=== PATIENT | female | born 1995 | race Caucasian/White ===

== ENCOUNTER 2018-12-17 13:15 | Observation (INO) | payer BC ==
--- NOTE | 2018-12-17 14:31 | ED ---
GI/ HPI - HPI Summary HPI Summary: This pt is a 23 y/o [facility]/o [facility] pain x7 days. Pt reports she went to [facility] yesterday and TOURIST INFORMATION ASSISTANT told her she might have a "strangled hemorrhoid" and she might be having pain from this. Pt was given creams for her hemorrhoid and notes it helps her pain but it wears off overnight and has extreme pain afterwards. Denies rectal bleeding. Today she called [facility] to get an appointment for tomorrow due to pain but the TOURIST INFORMATION ASSISTANT advised pt to get an appointment with [facility]. Pt was able to get an appointment with [facility] for tomorrow but due to pain she came to the ED. Pt reports she has not slept or eaten in 2 days secondary to her pain. She endorses nausea. Denies vomiting or fevers. - History of Current Complaint Chief Complaint: EDGeneral Time Seen by Provider: 12/17/18 14:24 Stated Complaint: Hemorrhoid pain Hx Obtained From: Patient Onset/Duration: Started Days Ago, Still Present Timing: Lasting Days Current Severity: Severe Pain Intensity: 7 Location of Pain: Rectal Associated Signs and Symptoms: Positive: Nausea, Rectal Pain. Negative: Vomiting, Fever Aggravating Factor(s): Nothing Alleviating Factor(s): Nothing - Allergy/Home Medications Allergies/Adverse Reactions: Allergies Allergy/AdvReac Type Severity Reaction Status Date / Time No Known Allergies Allergy Verified 12/17/18 18:17 Home Medications: Home Medications Hydrocortisone SUPP* [Anusol HC Supp*] 25 mg GA DAILY 12/17/18 [History Confirmed 12/17/18] Lidocaine 5% OINT* TUBE [Xylocaine 5% Oint*] 1 applic TOPICAL BID PRN 12/17/18 [ History Confirmed 12/17/18] Naproxen TAB* [Naprosyn 250 mg TAB*] 500 mg PO BID PRN 12/17/18 [History Confirmed 12/17/18] PMH/Surg Hx/FS Hx/Imm Hx Endocrine/Hematology History: Denies: Hx Diabetes Cardiovascular History: Denies: Hx Hypertension Infectious Disease History: No Infectious Disease History: Denies: Traveled Outside the [place] in Last 30 Days - Family History Known Family History: Positive: Non-Contributory - Social History Alcohol Use: Occasionally Substance Use Type: Reports: None Smoking Status (MU): Never Smoked Tobacco Review of Systems Constitutional: Other - POSITIVE: decreased appetite, sleep disturbance Negative: Fever Positive: Nausea. Negative: Vomiting Genitourinary: Other - POSITIVE: rectal pain Negative: other - NEGATIVE: rectal bleeding All Other Systems Reviewed And Are Negative: Yes Physical Exam - Summary Physical Exam Summary: Constitutional: Well-developed, Well-nourished, Alert. (-) Distressed Skin: Warm, Dry HENT: Normocephalic; Atraumatic Eyes: Conjunctiva normal Neck: Musculoskeletal ROM normal neck. (-) JVD, (-) Stridor, (-) Tracheal deviation Cardio: Rhythm regular, rate normal, Heart sounds normal; Intact distal pulses; The pedal pulses are 2+ and symmetric. Radial pulses are 2+ and symmetric. (-) Murmur Pulmonary/Chest wall: Effort normal. (-) Respiratory distress, (-) Wheezes, (-) Rales Abd: Soft, (-) tenderness, (-) Distension, (-) Guarding, (-) Rebound Rectal exam: She has perianal tenderness with mild swelling at 5 o'clock on the right side perianally where she has primarily tenderness. She has one small hemorrhoid that is not thrombosed and is soft and nontender. Musculoskeletal: (-) Edema Lymph: (-) Cervical adenopathy Neuro: Alert, Oriented x3 Psych: Mood and affect Normal Triage Information Reviewed: Yes Vital Signs On Initial Exam: Initial Vitals Temp Pulse Resp BP Pulse Ox 98.5 F 111 18 159/102 99 12/17/18 13:20 12/17/18 13:20 12/17/18 13:20 12/17/18 13:20 12/17/18 13:20 Vital Signs Reviewed: Yes Procedures - Sedation Patient Received Moderate/Deep Sedation with Procedure: No Diagnostics - Vital Signs Vital Signs Temp Pulse Resp BP Pulse Ox 12/17/18 13:20 98.5 F 111 18 159/102 99 - Laboratory Result Diagrams: 12/17/18 15:21 12/17/18 15:21 Lab Statement: Any lab studies that have been ordered have been reviewed, and results considered in the medical decision making process. - CT Pelvis CT CT Interpretation Completed By: Radiologist Summary of CT Findings: Per radiologist,. THERE IS A PERIRENAL FLUID COLLECTION EXTENDING INTO THE ISCHIOANAL FOSSAE BILATERALLY,. CONSISTENT WITH THE HISTORY OF PERIANAL ABSCESS. THIS MEASURES UP TO 5.7 CM. ED physician has reviewed this imaging report. GIGU Course/Dx - Course Assessment/Plan: Pt is a 23 y/o female [facility]/o rectal pain x7 days. Pt reports she has not slept or eaten in 2 days secondary to her pain. She endorses nausea. Denies vomiting or fevers. Pt [facility] with [facility] tomorrow. Exam reveals no abnormalities except for She has perianal tenderness with mild swelling at 5 o'clock on the right side perianally where she has primarily tenderness. She has one small hemorrhoid that is not thrombosed and is soft and nontender. Tests reveal no abnormalities except for WBC 11.8 H, Absolute Neuts 9.6 H, Absolute Monos 0.9 H , BUN/Creatinine Ratio 20.3 H, AsT 10 L, CRP 101.23 H, Lipase <10 L. Pt was given 145 ml Iohexol IV, 4 mg Morphine Sulfate IV, 4 mg Ondansetron Hcl IV, 200 mls.hr piperacillin Sod/Taxobactam Sod 3.375 gm in Sodium Chloride 1716in the ED. Pelvis CT reveals THERE IS A PERIRENAL FLUID COLLECTION EXTENDING INTO THE ISCHIOANAL FOSSAE BILATERALLY,. CONSISTENT WITH THE HISTORY OF PERIANAL ABSCESS. THIS MEASURES UP TO 5.7 CM. We discussed patient care with Dr. Perez, surgery, and he wishes to visit due to concern of perianal abscess. Patient will be admitted with diagnosis of perianal abscess. The patient is agreeable with this plan. - Diagnoses Provider Diagnoses: Perianal abscess - Physician Notifications Discussed Care Of Patient With: Kain Perez - surgeon Time Discussed With Above Provider: 17:16 Instructed by Provider To: Other - Pt might have perianal abscess, checked in on patient. Discharge ED - Sign-Out/Discharge Documenting (check all that apply): Patient Departure - admit - Discharge Plan Condition: Stable Disposition: ADMITTED TO [facility] - Billing Disposition and Condition Condition: STABLE Disposition: Admitted to [facility] - Attestation Statements Document Initiated by Scribe: Yes Documenting Scribe: Annemarie Morris Provider For Whom Scribe is Documenting (Include Credential): Molly Dominguez MD Scribe Attestation: IAnnemarie, scribed for Molly Vora MD on 12/17/18 at 5229. Scribe Documentation Reviewed: Yes Provider Attestation: The documentation as recorded by the scribe, Annemarie Morris accurately reflects the service I personally performed and the decisions made by me, Molly Vora MD Status of Scribe Document: Viewed
[2018-12-17] MEDS ORDERED: Iohexol 300* (CONTRAST) 10 ML SDV IV ONE (15:22)
[2018-12-17 15:38] LABS: ABS Eosinophils 0.1 10^3/ul (0-0.6); ABS Lymphocytes 1.2 10^3/ul (1.0-4.8); ABS Monocytes 0.9 10^3/ul (0-0.8); ABS Neutrophils 9.6 10^3/ul (1.5-7.7); Eosinophil % 0.5 %; Hematocrit 38 % (35-47); Hemoglobin 12.7 g/dL (12.0-16.0); Mean Corpuscular HGB Conc 34 g/dL (31-36); Mean Corpuscular Hemoglobin 30 pg (27-31); Mean Corpuscular Volume 90 fL (80-97); Mean Platelet Volume 7.8 fL (7.4-10.4); Nucleated Red Blood Cells % 0.1; Platelet Count 227 10^3/uL (150-450); Red Blood Count 4.19 10^6 /uL (3.70-4.87); Red Cell Distribution Width 12 % (10-15); White Blood Count 11.8 10^3/uL (3.5-10.8)
[2018-12-17 15:56] LABS: ALT 8 U/L (7-52); AST 10 U/L (13-39); Albumin 4.6 g/dL (3.2-5.2); Albumin/Globulin Ratio 1.4 (1-3); Alkaline Phosphatase 56 U/L (34-104); Anion Gap 7 mmol/L (2-11); BUN/Creatinine Ratio 20.3 (8-20); Blood Urea Nitrogen 15 mg/dL (6-24); C Reactive Protein 101.23 mg/L (<8.01); CO2 Carbon Dioxide 27 mmol/L (22-32); Calcium 10.1 mg/dL (8.6-10.3); Chloride 102 mmol/L (101-111); EGFR African American 119.9 (>60); EGFR Non-African American 99.1 (>60); Globulin 3.4 g/dL (2-4); Glucose 92 mg/dL (70-100); Potassium 3.8 mmol/L (3.5-5.0); Sodium 136 mmol/L (135-145)
[2018-12-17] MEDS ORDERED: Morphine 4 MG/ML VIAL (1 ml) 4 MG/ML VIAL IV ONE (17:01)
[2018-12-17] MEDS ORDERED: Ondansetron INJ* 2 MG/ML VIAL IV PRN ×2 (17:18→17:24)
[2018-12-17] MEDS ORDERED: Piperacillin/Tazobac ADVAN(*) 3.375 GM in NS 0.9% 100 ML* 100 ML IVPB ONE (17:18)
[2018-12-17] MEDS ORDERED: Lactated Ringers 1000 ML Bag* 1,000 ML IV SCH (17:22)
[2018-12-17] MEDS ORDERED: Morphine 4 MG/ML VIAL (1 ml) 4 MG/ML VIAL IV PRN (17:31)
--- NOTE | 2018-12-17 19:05 | HP ---
CC: [facility]; [facility] * ADMISSION HISTORY AND PHYSICAL: DATE OF ADMISSION: 12/17/18. CHIEF COMPLAINT: Severe perianal discomfort. HISTORY OF PRESENT ILLNESS: Ms. Gricel Peña is a pleasant 23-year-old [employer] senior, who last Sunday developed some perianal discomfort. This was somewhat mild for the first several days, but over the last 3 to 4 days had become increased in severity. She has not had any fever, shakes or chills. She has been having loose bowel movements. She has been urinating without difficulty. The pain was not improving with [id number]-cbi-[id number] nonsteroidals. She went to the [facility] yesterday. There was concern for possible internal hemorrhoid and she was given some ointments as well as recommended to take nonsteroidal pain medicine. When the pain persisted, she did make an appointment for this to be seen by [facility] in the office on Sunday, but the pain was worsening and she presented to the emergency room this evening. She has had no urinary complaints. There has been no blood per rectum. She has no history of perianal abscesses in the past. When seen in the emergency room, she was noted to be afebrile; however, heart rate was 111. She appeared to be somewhat flushed. Laboratory workup included a white blood cell count of just under 11,000 with a slight increase in the absolute neutrophils. A test was unremarkable. Lactic acid was normal. C- reactive protein was 101. She underwent a CT scan of the pelvis. I did review these images. This showed a rather large perirectal abscess bilaterally, possibly consistent with a horseshoe abscess. Surgical consultation was obtained. PAST MEDICAL HISTORY: Unremarkable. PAST SURGICAL HISTORY: Tonsillectomy. MEDICATIONS: Home medicines are none. ALLERGIES: She has no known drug allergies. SOCIAL HISTORY: She drinks alcohol on a social basis. She does not use tobacco. She is a [employer] senior from [place]. REVIEW OF SYSTEMS: Cerebrovascular: No dizziness or visual disturbance. Cardiovascular: No chest pain or shortness of breath. Pulmonary: No wheezing , hemoptysis, or asthma. GI: No change in bowel habits. No blood per rectum. : No urgency or hematuria. Psychiatry: Unremarkable. PHYSICAL EXAMINATION GENERAL: A well-developed, slightly overweight female with normal attention to grooming. She is awake. She is conversant and very pleasant. Her face is slightly flushed. VITAL SIGNS: Temperature 98.5, pulse 88, blood pressure 136/84. HEENT: Oral mucosa is dry. LUNGS: Clear to auscultation with normal respiratory effort. HEART: Regular rate and rhythm without murmurs, rubs, or gallops. ABDOMEN: Soft and nondistended. Normoactive bowel sounds. There are no hernias. There is no distention in the left lateral decubitus position. She has tenderness along the left lateral perianal area, extended anteriorly and onto the right with some fullness. There is no evidence of erythema or fluctuance; however, there is minimal discomfort posteriorly. IMPRESSION: Perirectal abscess. This appears to be approximately 5 cm and appears just to track anteriorly and may be consistent with a horseshoe abscess. Digital rectal exam was not performed in the emergency room. PLAN/RECOMMENDATIONS: 1. The patient will be admitted to the surgical service and kept n.p.o. 2. Start on IV antibiotics including IV Zosyn. 3. IV fluids will be administered. 4. Plan will be for the operating room this evening for an exam under anesthesia with incision and drainage of a perirectal abscess. The procedure was discussed with the patient and the risks of, but not limited to, further bleeding, infection, injury to sphincter muscles resulting in incontinence which may be temporary or permanent. Further surgical drainage in the future may be indicated and also the risks of fistula formation associated with abscesses were discussed. We also discussed anesthesia, hospital stay, and postoperative followup. [id number]/[facility] #: [id number] FAVIAN
[2018-12-17] MEDS ORDERED: Lidocaine 2% PF * 5 ML VIAL ONE (19:13)
[2018-12-17] MEDS ORDERED: Propofol* 10 MG/ML 20 ML BTL ONE ×2 (19:13→20:17)
[2018-12-17] MEDS ORDERED: fentaNYL* 50 MCG/ML 2 ML VIAL (100 MCG VIAL) ONE (19:16)
[2018-12-17] MEDS ORDERED: Midazolam* 1 MG/ML 2 ML VIAL (2 MG) ONE (19:16)
[2018-12-17] MEDS ORDERED: Rocuronium* 10 MG/ML VIAL ONE (19:17)
[2018-12-17] MEDS ORDERED: Sodium Citrate/Citric Acid* 15 ML UDC ONE (19:20)
[2018-12-17] MEDS ORDERED: Glycopyrrolate IV* 0.2 MG/ML 1 ML VIAL ONE ×2 (20:17)
[2018-12-17] MEDS ORDERED: Neostigmine Methylsulfate* 3 MG/3 ML SYRINGE ONE (20:17)
--- NOTE | 2018-12-17 20:34 | OP ---
Operative Report - Blank - Operative Report Date of Operation: 12/17/18 Note: OPERATIVE REPORT Pre-op: Jai-rectal abscess Post-Op: Same, anterior horseshoe jai-rectal abscess Procedure:Incision and drainage of jai-rectal abscess Surgeon: MD Chris Asst: none Anes: general with local, Dr. Vazquez IVF:500 cc crystalloid EBL:min Specimen: none Drain: 1/4 inch thomas drain Wound: 4 Findings: large anterior jai-rectal abscess left and right side with communication anteriorly. To PACU
[2018-12-17] MEDS ORDERED: Acetaminophen TAB* 325 MG PO PRN (20:36)
[2018-12-17] MEDS ORDERED: Naloxone* 0.4 MG/ML 1 ML VIAL IV PRN (20:43)
[2018-12-17] MEDS ORDERED: fentaNYL* 50 MCG/ML 2 ML VIAL (100 MCG VIAL) IV PRN (20:43)
[2018-12-17] MEDS: NS 0.9% 1000 ML** 1,000 ML IV SCH (21:56)
[2018-12-17] MEDS: Ketorolac INJ* 30 MG/ML 1 ML VIAL IV PRN (22:31)
--- NOTE | 2018-12-17 23:59 | OP ---
DATE OF OPERATION: 12/17/18 - ROOM #349 DATE OF : [birth year] SURGEON: Kain Perez MD NEPHROLOGY NURSE: None. ANESTHESIOLOGIST: Dr. Dawkins. ANESTHESIA: General with local. PRE-OP DIAGNOSIS: Perirectal abscess. POST-OP DIAGNOSIS: Anterior horseshoe perirectal abscess. OPERATIVE PROCEDURE: Incision and drainage of the perirectal abscess. ESTIMATED BLOOD LOSS: Minimal. IV FLUIDS: 500 cc of crystalloid. SPECIMENS: None. WOUND CLASSIFICATION: IV. COMPLICATIONS: None. DRAINS: One-quarter inch Felipe drain. FINDINGS: The patient had anterior horseshoe perirectal abscess, the larger component mainly on the patient's left extending around to the right anteriorly. Also noted was a small pinpoint opening in the anterior midline anal canal with the drainage of pus. BRIEF HISTORY: Ms. Peña is a 23-year-old [employer] senior, who has had a week of severe perianal discomfort worsening over the past several days, who presented to the emergency room and was noted to have a mild elevation of white blood cell count and perianal tenderness. A CT scan revealed a perirectal abscess and she is now being taken to the operating room. The procedure including its risks, but not limited to bleeding, infection, incontinence, which may be prominent, discomfort, recurrent abscesses, fistula formation, and prolonged healing were all explained. DESCRIPTION OF PROCEDURE: Written and informed consent was obtained and preoperative antibiotics were administered. The patient was taken to the operating room and placed in the supine position. General anesthesia was administered and sequential compression devices instead of warming blanket were applied. She was placed in the prone tony-knife position. The perineum and buttocks were prepped and draped in the usual sterile fashion. A time-out verification was completed. A 0.25% Marcaine mixed with 1% lidocaine with epinephrine was infiltrated in the perianal area. Digital rectal exam showed slight decreased tone. Anoscopy was performed. There was no significant internal hemorrhoid disease, fissures, or distal rectal mucosal abnormality. In the anterior midline was a small pinpoint opening, which when pressure was placed on the anterior buttock area, there was some purulent drainage. I next placed an 18-gauge needle over an area of fullness in left anterior perirectal area and withdrew pus. I made a longitudinal incision of approximately 1.5 cm and entered a large abscess cavity and drained a large amount of foul smelling creamy pus. I opened this up and digitally opened the areas more posteriorly and it went anteriorly across the midline to the right side where there was likewise a larger cavity and I thus made a counter incision in a similar fashion longitudinally into the cavity. I then irrigated until there was no further drainage and hemostasis was assured at the skin level. One-quarter inch [place] drain was then passed between 2 counter incisions crossing the midline anteriorly. This was sutured to the skin loosely at the 2 exit points with a 3-0 Prolene suture. I then packed both openings along the drains on either side with one-quarter inch Felipe drain. Dry sterile dressings were applied. The patient tolerated the procedure well and was taken to the recovery room in stable condition. [id number]/[facility] #: [id number] FAVIAN
[2018-12-18] MEDS: NS 0.9% 1000 ML** 1,000 ML IV SCH ×2 (04:59→13:05)
[2018-12-18 08:29] LABS: Urine Appearance Cloudy; Urine Bacteria Absent (Absent); Urine Bilirubin Negative (Negative); Urine Blood 2+ (Negative); Urine Color Yellow; Urine Glucose Negative (Negative); Urine Ketones 1+ (Negative); Urine Nitrite Negative (Negative); Urine Protein Negative (Negative); Urine Red Blood Cell 3+(>10/hpf) (Absent); Urine Specific Gravity 1.031 (1.010-1.030); Urine Squamous Epithelial Cell Present (Absent); Urine Urobilinogen Negative (Negative); Urine White Blood Cell 2+(11-20/hpf) (Absent)
[2018-12-18] MEDS ORDERED: Influenza VAC *QUAD* 2019-20* 0.5 ML SYRINGE IM ONE (09:00)
--- NOTE | 2018-12-18 09:02 | PN ---
Progress Note - Progress Note Date of Service: 12/18/18 SOAP: Subjective: Feels better, less pain Ambulating in halls Voiding without difficulty Objective: Temp Pulse Resp BP Pulse Ox 98.2 F 72 20 128/50 97 12/18/18 08:55 12/18/18 08:55 12/18/18 08:55 12/18/18 08:55 12/18/18 08:55 PEX: Comfortable Lungs are clear Abd is soft Perineal dressing in place Assessment: POD#1 s/p I and D of large jai-rectal abscess Plan: IV abx for 24 hours Change packing today Analgesia Sitz baths Increase diet Plan D/C home tomorrow on oral antibiotics and office follow up Discussed findings at surgery last night with patient and her mother at bedside.
[2018-12-18] MEDS: Ketorolac INJ* 30 MG/ML 1 ML VIAL IV PRN ×2 (10:06→20:12)
[2018-12-18] MEDS ORDERED: Piperacillin/Tazobac ADVAN(*) 3.375 GM in NS 0.9% 100 ML* 100 ML IVPB ONE (10:09)
[2018-12-18] MEDS ORDERED: Zosyn per Pharmacy* NOTE FOLLOW UP SCH (11:00)
[2018-12-18] MEDS ORDERED: Morphine INJ* 4 MG/ML 1 ML SYRINGE (NEW SYRINGE VERSION) ONE (11:01)
[2018-12-18] MEDS: Morphine INJ* 4 MG/ML 1 ML SYRINGE (NEW SYRINGE VERSION) IV PRN (11:03)
[2018-12-18] MEDS ORDERED: HYDROcodone/ACETAMIN 5-325 MG* 1 TAB PO PRN (13:42)
[2018-12-18] MEDS: ZOSYN 3.375 GM Q8H per EXTENDED INFUSION IVPB SCH ×4 (14:36→22:28)
[2018-12-19] MEDS: ZOSYN 3.375 GM Q8H per EXTENDED INFUSION IVPB SCH ×2 (06:20)
[2018-12-19] MEDS: Morphine INJ* 4 MG/ML 1 ML SYRINGE (NEW SYRINGE VERSION) IV PRN (08:12)
--- NOTE | 2018-12-19 09:18 | PN ---
Progress Note - Progress Note Date of Service: 12/19/18 Note: S: doing well this a.m.. Dr. Perez in to see. Has had continued blood stained drainage. Only required one dose of Toradol last pm for pain. O: Vital Signs - 8 hr 12/19/18 12/19/18 12/19/18 03:19 07:52 08:00 Temperature 98.7 F 97.3 F Pulse Rate 69 80 Respiratory 14 14 22 Rate Blood Pressure 117/62 130/70 (mmHg) O2 Sat by Pulse 98 97 Oximetry 12/19/18 08:12 Temperature Pulse Rate Respiratory 18 Rate Blood Pressure (mmHg) O2 Sat by Pulse Oximetry Intake and Output Last 24 Hours 12/17/18 12/18/18 12/19/18 12/20/18 06:59 06:59 06:59 06:59 Intake Total 2320 2687 Output Total 0 2250 Balance 2320 437 Weight 240 lb Intake: IV Fluids 2070 1457 ABX - ZOSYN 260 LR 1100 NS (0.9%) 970 1197 Oral 250 1230 Output: Urine 0 2250 Other: Estimated Void Large Jai-rectal area: thomas drain in place. Packing from Right side removed w/o incident. No add'l drainage; min tenderness to palp. I noted packing on the left side as well (which I had looked for yesterday but had not seen at the time of her packing change on the right). This was also removed, with no addl drainage noted. No add'l packing placed. A: s/p drainage jai-rectal abscess, cont to improve P: home today on Augmentin; local wound care instructions reviewed; office f/u next Sun w/ Dr. Perez.
--- NOTE | 2018-12-19 09:59 | DS ---
CC: [facility] * DISCHARGE SUMMARY: DATE OF ADMISSION: 12/17/18 DATE OF DISCHARGE: 12/19/18 ATTENDING SURGEON: Dr. Kain Perez.* (DICTATED BY BUTCH DA SILVA) HOSPITAL COURSE: Please refer to admission history and physical and operative note for details. The patient was taken to the operating room on the evening of 12/17/18, at which time Dr. Perez drained a horseshoe configuration perirectal abscess. He placed a [place] drain which traverses the midline and exits from each side, it is secured with suture. He also packed the wound cavities on each side with 1/4-inch gauze packing. Packing was removed from both sides today and no additional packing was placed. She is doing well in terms of pain control and has been afebrile (see separate progress note from today). Instructions were reviewed regarding wound care and activity. She has a followup scheduled in our office on 12/25/18. She will be discharged on Augmentin 875 mg b.i.d. x7 days. She is discharged to home in good condition. BUTCH DA SILVA [id number]/[facility] #: [id number] MTDLima
[2018-12-19 12:39] VITALS: BP 117/74
== END 2018-12-19 12:30 | disposition home or self-care (01) ==
LOC: ED 13:15 → OR 17:49 → INTOOBSV 21:44 → SSU 21:44
PROVIDERS: ADMIT Pediatrics; ATTEND Surgery
DX: K61.0 Anal abscess (principal); R11.0 Nausea; Z23 Encounter for immunization; Z79.899 Other long term (current) drug therapy
CPT/HCPCS: 36415; 72193; 80053; 81003; 81015; 83605; 83690; 84702; 85025; 86140; 87040; 87086; 90471; 90686; 96365; 96366; 96375; 96376; 99284; A9270-GY; G0008; G0378; J1885; J2250; J2270; J2405; J2543; J2704; J2710; J3010; Q9967

== ENCOUNTER 2019-02-25 17:27 | Emergency (ER) | payer BC ==
--- OUTSIDE RECORDS SUMMARY | 2019-02-25 17:41 | XMS REPORT | Continuity of Care Document ---
:1995 External Reference #:[id number] Author Name Kain Perez MD (transmitted by agent of provider Nat Weston) Address [address] [place] [address] Care Team Providers Name Role Phone Nano Lloyd FNP - Nurse Care Team Information Clerk Of Court [phone] Practitioner Keanu Macias MD - Family Medicine Care Team Information Clerk Of Court Problems Description No Information Available Social History Type Date Description Comments Sex Unknown ETOH Use Occasionally consumes alcohol Tobacco Use Start: Unknown Patient has never smoked Smoking Status Reviewed: 01/10/19 Patient has never smoked Exercise Type/Frequency Exercises regularly Allergies, Adverse Reactions, Alerts Description No Known Drug Allergies Medications Description No Active Medications Immunizations Description No Information Available Vital Signs Date Vital Result Comment 01/10/2019 1:00pm Height 68 inches Weight 240.00 lb Heart Rate 60 /min BP Systolic Sitting 126 mmHg BP Diastolic Sitting 82 mmHg Respiratory Rate 16 /min Body Temperature 98.4 F BMI (Body Mass Index) 36.5 kg/m2 12/25/2018 2:52pm Height 68 inches 5'8" Weight 240.00 lb Heart Rate 84 /min Respiratory Rate 16 /min Body Temperature 98.0 F BMI (Body Mass Index) 36.5 kg/m2 Results Description No Information Available Procedures Date Code Description Status 12/17/2018 43027 I & D Abscess Transanal Under Anesthesia Completed Medical Devices Description No Information Available Encounters Type Date Location Provider Dx Diagnosis Office Visit 12/17/2018 [facility] Kain [id number] Horseshoe abscess 7:00a Of Chikis Perez MD Assessments Date Code Description Provider 01/10/2019 K61.Oskar Horseshoe abscess Kain Perez MD 12/25/2018 K61.Oskar Horseshoe abscess Kain Perez MD 12/19/2018 K61.31 Horseshoe abscess BUTCH Cid 12/19/2018 K61.31 Horseshoe abscess Reece Major, BUTCH 12/18/2018 K61.31 Horseshoe abscess Kain Perez MD 12/17/2018 K61.31 Horseshoe abscess Kain Perez MD 12/17/2018 K61.31 Horseshoe abscess Kain Perez MD Plan of Treatment 01/10/2019 - Kain Perez MDK61.31 Horseshoe abscessFollow up:None needed Call with any problems or concerns Functional Status Description No Information Available Mental Status Description No Information Available Referrals Description No Information Available
[2019-02-25 19:51] LABS: ABS Eosinophils 0.1 10^3/ul (0-0.6); ABS Monocytes 0.5 10^3/ul (0-0.8); ABS Neutrophils 4.6 10^3/ul (1.5-7.7); Eosinophil % 1.2 %; Hematocrit 37 % (35-47); Hemoglobin 12.7 g/dL (12.0-16.0); Lymphocyte % 27.4 %; Mean Corpuscular HGB Conc 35 g/dL (31-36); Mean Corpuscular Hemoglobin 31 pg (27-31); Mean Corpuscular Volume 89 fL (80-97); Mean Platelet Volume 8.2 fL (7.4-10.4); Platelet Count 244 10^3/uL (150-450); Red Blood Count 4.12 10^6 /uL (3.70-4.87); Red Cell Distribution Width 13 % (10-15); White Blood Count 7.2 10^3/uL (3.5-10.8)
[2019-02-25 20:08] LABS: Albumin 4.5 g/dL (3.2-5.2); Albumin/Globulin Ratio 1.6 (1-3); BUN/Creatinine Ratio 16.3 (8-20); Calcium 9.5 mg/dL (8.6-10.3); EGFR African American 108.5 (>60); EGFR Non-African American 89.7 (>60); Globulin 2.8 g/dL (2-4); Potassium 3.8 mmol/L (3.5-5.0); Total Bilirubin 0.4 mg/dL (0.2-1.0); Total Protein 7.3 g/dL (6.4-8.9)
--- NOTE | 2019-02-25 20:43 | ED ---
Shortness of Breath - HPI Summary HPI Summary: This pt is a 24 y/o female [facility] [place] [facility] [place]/o SOB for the past month. Pt reports that during the middle to the end of January 2019 she was coughing up phlegm, states she didn't have SOB then. Pt states she went on a 3 hour flight on 01/31/19 and started to have SOB while on the plane (denies hx of anxiety during plane rides). Pt notes when she landed she went to an Urgent Care and they gave her a Zpack and cough medicine. The next day she went to the ER because medications were not helping and they thought she had bronchitis and gave her a breathing treatment, prednisone and an inhaler. Pt notes she was also taking Flonase at that time and it was drying out her throat. Pt states 3 days later on 02/04/19 she had another episode of SOB and dry cough while having dinner and went to the ER and was diagnosed with an URI. Pt saw her processing engineer who told her she needed Mucinex. She then also saw a controller coal or ore who did a breathing test and a chest XR which resulted normal and was told it would take time to get over her dry cough. Pt states she then began to have heart burn and was burping a lot so she followed up with a gatroenterologist who told her she could have acid reflux and scheduled her for an endoscopy. Pt saw an ENT as well and told her her nasal mucosa was dry and her throat was irritated. Pt went back for her endoscopy and was given pantoprazole to help her GERD. Pt notes this week she is back in school and is still having SOB. Today pt also had associated chest pain. Pt spoke with family MANAGER OB and was advised to come to the ED for a D-dimer. Denies fevers, nausea, vomiting. Pt reports she used vape products in the past and is concerned her SOB is related to this. However patient also states her SOB might be anxiety related and is tearful at bedside. Pt had surgery in Dec 2018 for rectal abscess I&D. - History of Current Complaint Chief Complaint: EDShortnessOfBreath Time Seen by Provider: 02/25/19 20:31 Hx Obtained From: Patient Onset/Duration: Lasting Weeks, Still Present Current Severity: Mild Aggravating Factors: Nothing Alleviating Factors: Nothing Associated Signs & Symptoms: Cough (Nonproductive), Chest Pain w/Cough - Allergy/Home Medications Allergies/Adverse Reactions: Allergies Allergy/AdvReac Type Severity Reaction Status Date / Time No Known Allergies Allergy Verified 02/25/19 17:37 Home Medications: Home Medications Albuterol HFA INHALER* [Ventolin HFA Inhaler*] 1 puff INH Q4H PRN 02/25/19 [ History Confirmed 02/25/19] Pantoprazole TAB * [Protonix TAB*] 40 mg PO DAILY 02/25/19 [History Confirmed ] PMH/Surg Hx/FS Hx/Imm Hx Endocrine/Hematology History: Denies: Hx Diabetes Cardiovascular History: Denies: Hx Hypertension Musculoskeletal History: Reports: Hx Orthopedic Injury - Neck sprain ~two weeks ago Sensory History: Reports: Hx Contacts or Glasses Denies: Hx Hearing Aid Opthamlomology History: Reports: Hx Contacts or Glasses - Surgical History Surgical History: Yes Surgery Procedure, Year, and Place: Tonsilectomy when 7 yo. I&D of rectal abscess Infectious Disease History: No Infectious Disease History: Denies: Traveled Outside the [place] in Last 30 Days - Family History Family History: Grandmother with GERD - Social History Alcohol Use: Occasionally Substance Use Type: Reports: None Smoking Status (MU): Never Smoked Tobacco Have You Smoked in the Last Year: No Review of Systems Negative: Fever Positive: Chest Pain Positive: Shortness Of Breath, Cough Negative: Vomiting, Nausea All Other Systems Reviewed And Are Negative: Yes Physical Exam - Summary Physical Exam Summary: VITAL SIGNS: Reviewed. GENERAL: Patient is a well-developed and obese female who is lying comfortable in the stretcher. Patient is not in any acute respiratory distress. HEAD AND FACE: No signs of trauma. No ecchymosis, hematomas or skull depressions. No sinus tenderness. EYES: PERRLA, EOMI x 2, No injected conjunctiva, no nystagmus. EARS: Hearing grossly intact. Ear canals and tympanic membranes are within normal limits. MOUTH: Oropharynx within normal limits. NECK: Supple, trachea is midline, no adenopathy, no JVD, no carotid bruit, no c- spine tenderness, neck with full ROM. CHEST: Symmetric, no tenderness at palpation LUNGS: Clear to auscultation bilaterally. No wheezing or crackles. CVS: Regular rate and rhythm, S1 and S2 present, no murmurs or gallops appreciated. ABDOMEN: Soft, non-tender. No signs of distention. No rebound, no guarding, and no masses palpated. Bowel sounds are normal. EXTREMITIES: FROM in all major joints, no edema, no cyanosis or clubbing. NEURO: Alert and oriented x 3. No acute neurological deficits. Speech is normal and follows commands. SKIN: Dry and warm Triage Information Reviewed: Yes Vital Signs On Initial Exam: Initial Vitals Temp Pulse Resp BP Pulse Ox 99.5 F 114 18 145/93 100 02/25/19 17:28 02/25/19 17:28 02/25/19 17:28 02/25/19 17:28 02/25/19 17:28 Vital Signs Reviewed: Yes Procedures - Sedation Patient Received Moderate/Deep Sedation with Procedure: No Diagnostics - Vital Signs Vital Signs Temp Pulse Resp BP Pulse Ox 02/25/19 19:59 98 F 63 18 135/84 100 02/25/19 17:28 99.5 F 114 18 145/93 100 - Laboratory Lab Results: Lab Results 02/25/19 02/25/19 02/25/19 Range/Units 19:42 19:42 19:42 WBC 7.2 (3.5-10.8) 10^3/uL RBC 4.12 (3.70-4.87) 10^6 /uL Hgb 12.7 (12.0-16.0) g/dL Hct 37 (35-47) % MCV 89 (80-97) fL MCH 31 (27-31) pg MCHC 35 (31-36) g/dL RDW 13 (10-15) % Plt Count 244 (150-450) 10^3/uL MPV 8.2 (7.4-10.4) fL Neut % (Auto) 64.4 % Lymph % (Auto) 27.4 % Daniels % (Auto) 6.6 % Eos % (Auto) 1.2 % Baso % (Auto) 0.4 % Absolute Neuts (auto) 4.6 (1.5-7.7) 10^3/ul Absolute Lymphs (auto) 2.0 (1.0-4.8) 10^3/ul Absolute Monos (auto) 0.5 (0-0.8) 10^3/ul Absolute Eos (auto) 0.1 (0-0.6) 10^3/ul Absolute Basos (auto) 0.0 (0-0.2) 10^3/ul Absolute Nucleated RBC 0.0 10^3/ul Nucleated RBC % 0.0 D-Dimer, Quantitative < 200 (Less Than 230) ng/mL Sodium 138 (135-145) mmol/L Potassium 3.8 (3.5-5.0) mmol/L Chloride 108 (101-111) mmol/L Carbon Dioxide 22 (22-32) mmol/L Anion Gap 8 (2-11) mmol/L BUN 13 (6-24) mg/dL Creatinine 0.80 (0.51-0.95) mg/dL Est GFR ( Amer) 108.5 (>60) Est GFR (Non-Af Amer) 89.7 (>60) BUN/Creatinine Ratio 16.3 (8-20) Glucose 85 (70-100) mg/dL Calcium 9.5 (8.6-10.3) mg/dL Total Bilirubin 0.40 (0.2-1.0) mg/dL AST 16 (13-39) U/L ALT 17 (7-52) U/L Alkaline Phosphatase 45 (34-104) U/L Total Protein 7.3 (6.4-8.9) g/dL Albumin 4.5 (3.2-5.2) g/dL Globulin 2.8 (2-4) g/dL Albumin/Globulin Ratio 1.6 (1-3) Result Diagrams: 02/25/19 19:42 02/25/19 19:42 Lab Statement: Any lab studies that have been ordered have been reviewed, and results considered in the medical decision making process. Course/Dx - Course Assessment/Plan: This pt is a 24 y/o female presenting to [facility] c/o SOB for the past month. Pt reports that during the middle to the end of January 2019 she was coughing up phlegm, states she didn't have SOB then. Pt states she went on a 3 hour flight on 01/31/19 and started to have SOB while on the plane (denies hx of anxiety during plane rides). Pt notes when she landed she went to an Urgent Care and they gave her a Zpack and cough medicine. The next day she went to the ER because medications were not helping and they thought she had bronchitis and gave her a breathing treatment, prednisone and an inhaler. Pt notes she was also taking Flonase at that time and it was drying out her throat. Pt states 3 days later on 02/04/19 she had another episode of SOB and dry cough while having dinner and went to the ER and was diagnosed with an URI. Pt saw her processing engineer who told her she needed Mucinex. She then also saw a controller coal or ore who did a breathing test and a chest XR which resulted normal and was told it would take time to get over her dry cough. Pt states she then began to have heart burn and was burping a lot so she followed up with a gatroenterologist who told her she could have acid reflux and scheduled her for an endoscopy. Pt saw an ENT as well and told her her nasal mucosa was dry and her throat was irritated. Pt went back for her endoscopy and was given pantoprazole to help her GERD. Pt notes this week she is back in school and is still having SOB and today with chest pain. Denies fevers, nausea, vomiting. Pt reports she used vape products in the past and is concerned her SOB is related to this. Pt had surgery in Dec 2018 for rectal abscess I&D. Blood test results without any significant abnormality. D-dimer is negative. Therefore I do not believe that the patient has a blood clot. Patient vital signs also are stable. Patient reports that she has been anxious for the last couple weeks because of these issues. Therefore, the patient was given hydroxyzine for anxiety. Patient was seen by controller coal or ore, ENT, and GI without any significant findings. Therefore we discussed the findings and physical with the patient and the need to follow with her primary care physician. Patient understands and agrees. Patient will be given a prescription for hydroxyzine and will be discharged home with follow-up with PCP. Patient is hemodynamically stable, alert and oriented 3. - Diagnoses Provider Diagnoses: Dyspnea, Anxiety Discharge ED - Sign-Out/Discharge Documenting (check all that apply): Patient Departure - Discharge home - Discharge Plan Condition: Stable Disposition: HOME Prescriptions: hydrOXYzine HCL TAB* [Atarax 25 MG TAB*] 25 mg PO TID PRN #20 tab PRN Reason: Agitation/Anxiety Patient Education Materials: Dyspnea (ED), Anxiety (ED) Referrals: [facility] [Primary Care Provider] - Additional Instructions: FOLLOW UP WITH YOUR PRIMARY CARE PROVIDER IN 2-3 DAYS. RETURN TO THE ED FOR ANY NEW OR WORSENING SYMPTOMS. - Billing Disposition and Condition Condition: STABLE Disposition: Home - Attestation Statements Document Initiated by Nila: Yes Documenting Scribe: Annemarie Morris Provider For Whom Nila is Documenting (Include Credential): Harvinder Ace MD Scribe Attestation: Annemarie Pineda, scribed for Harvinder Ace MD on 02/25/19 at 2152. Scribe Documentation Reviewed: Yes Provider Attestation: The documentation as recorded by the Annemarie amor accurately reflects the service I personally performed and the decisions made by , Harvinder Ace MD Status of Scribe Document: Viewed
[2019-02-25] MEDS ORDERED: hydrOXYzine HCL TAB* 25 MG PO ONE (20:49)
[2019-02-25 21:14] VITALS: BP 132/82
== END 2019-02-25 21:13 | disposition home or self-care (01) ==
LOC: ED 17:27
DX: R06.00 Dyspnea, unspecified (principal); F41.9 Anxiety disorder, unspecified
CPT/HCPCS: 36415; 80053; 85025; 85379; 99282; A9270-GY